=== PATIENT | female | born 1985 | race Hispanic/Latino ===

== ENCOUNTER 2019-01-26 08:12 | Outpatient (CLI) | payer OTHER ==
--- NOTE | 2019-01-26 10:54 | ULT ---
RIGHT UPPER QUADRANT ULTRASOUND: Date: 01/26/19 HISTORY: Elevated LFTs. FINDINGS: The liver demonstrates increased echogenicity consistent with fatty infiltration. No focal mass or in trahepatic ductal dilatation is seen. No gallstones, gallbladder wall thickening, or pericholecystic fluid is seen. The common duct measures 4 mm in diameter. The right kidney and visualized portions of the pancreas (tail not seen) are normal. No free fluid is seen in Morison's pouch. IMPRESSION: 1. Fatty liver. 2. No evidence of cholelithiasis. POS: OFF
== END 2019-01-26 08:13 | disposition home or self-care (01) ==
LOC: BICULT 08:12
DX: R74.8 Abnormal levels of other serum enzymes (principal); K76.0 Fatty (change of) liver, not elsewhere classified
CPT/HCPCS: 76705